=== PATIENT | male | born 1950 | race Caucasian/White ===

== ENCOUNTER 2017-11-17 10:47 | Day surgery (SDC) | payer MEDICARE ==
[~2017-11-17 10:47] MED LIST: Onabotulinimtoxina 100 UNITS* VIAL ONE
--- NOTE | 2017-11-18 13:04 | OP ---
DATE OF OPERATION: 11/17/17 - SDS DATE OF : 48 SURGEON: Agustin Hamilton MD PRE-OP DIAGNOSIS: Cricopharyngeal spasm. POST-OP DIAGNOSIS: OPERATIVE PROCEDURE: EMG-guided Botox injection under local anesthesia. The Botox was injected in the cricopharyngeus muscle in the local room. DESCRIPTION OF PROCEDURE: The patient's head was extended. His anterior neck was prepped with some alcohol. The cricoid cartilage and injection site just lateral to that and superior were demarcated and the injection site was injected with 1% lidocaine with epinephrine. 20 units of Botox was filled into the EMG needle and inserted through the skin inferomedially into the area of the cricopharyngeus. I had him swallow for the proper EMG muscle action potentials and then injected the 20 units of Botox. The patient tolerated this procedure well, no complications, and transferred back to [facility] in stable condition. [id number]/[facility] #: [id number] MTDD
== END 2017-11-17 11:39 | disposition home or self-care (01) ==
LOC: OR 10:47
PROVIDERS: ATTEND Otolaryngology
DX: R13.14 Dysphagia, pharyngoesophageal phase (principal); J39.2 Other diseases of pharynx; K22.4 Dyskinesia of esophagus; G71.0 Muscular dystrophy; Z87.891 Personal history of nicotine dependence; I10 Essential (primary) hypertension; Z85.038 Personal history of other malignant neoplasm of large intestine
CPT/HCPCS: 64616; 95873; J0585

== ENCOUNTER 2018-08-22 11:49 | Day surgery (SDC) | payer MEDICARE ==
[~2018-08-22 11:49] MED LIST changes: +Acetaminophen TAB* 325 MG PO PRN; +Buffered Lidocaine 1% SYRIN* 1 ML/SYRINGE INTRADERM ONE; -Onabotulinimtoxina 100 UNITS* VIAL ONE
[2018-08-22] MEDS ORDERED: Midazolam* 1 MG/ML 2 ML VIAL (2 MG) ONE (13:38)
[2018-08-22] MEDS ORDERED: Cyclopentolate 1% OPTH.SOL* 2 ML BTL ONE (14:26)
[2018-08-22] MEDS ORDERED: Povidone Iodine 5% OPTH* 30 ML BTL ONE (14:26)
[2018-08-22] MEDS ORDERED: Proparacaine 0.5% OPHTH.SOL* 15 ML BTL ONE (14:26)
[2018-08-22] MEDS ORDERED: Lidocaine 2% EPI 1:200000 MPF*10-20 ML VIAL ONE (14:26)
[2018-08-22] MEDS ORDERED: Lidocaine 1%* 5 ML VIAL ONE (14:26)
[2018-08-22] MEDS ORDERED: Ketorolac 0.5% OPHTH (NF) 0.5 % 5 ML BTL ONE (14:26)
[2018-08-22] MEDS ORDERED: acetaZOLAMIDE TAB* 250 MG ONE (14:26)
[2018-08-22] MEDS ORDERED: Neomycin/Polymy/Dex OPTH.SUSP* MAXITROL 0.1% 5 ML ONE (14:26)
[2018-08-22 14:50] VITALS: BP 133/76
--- NOTE | 2018-08-22 15:46 | OP ---
DATE OF OPERATION: 08/22/2018. DATE OF : 1950. SURGEON: Dante Greenwood M.D. PREOPERATIVE DIAGNOSIS: Cataract right eye. POSTOPERATIVE DIAGNOSIS: Cataract right eye. OPERATIVE PROCEDURE: Extracapsular cataract extraction with intraocular lens implant right eye. PROCEDURE: The patient was brought to the operating room after being given 1/2% Alcaine with epineph rine drops in the preoperative area. The eye was prepped and draped in the usual sterile fashion. S terile drape and eyelid speculum were placed. Again, topical 1/2% Alcaine with epinephrine was given . A paracentesis incision was made at the 9 o'clock position with the No.75 blade. Clear cornea inc ision 2.2 x 2.2-mm was created at the 12 o'clock position starting at the anterior limbus using the 2 .2-mm keratome. The anterior chamber was irrigated with 0.4 mL of 1% non-preservative intracameral l idocaine and filled with DisCoVisc. A capsulorrhexis was completed using the cystotome and the Utrat a forceps. Hydrodissection was performed with balanced salt solution. The lens nucleus was removed w ith the Phacoemulsification handpiece without incident. Cortex was removed with the irrigation-aspir ation handpiece. The capsular bag was re-inflated using DisCoVisc and an SN60WF 21.5 implant was ins erted with the shooter. The irrigation-aspiration handpiece was used to remove all residual DisCoVis c. The eye was refilled with balanced salt solution and the wound checked and found to be watertight . Topical Maxitrol drops were given. [id number]/[facility] #: [id number]
== END 2018-08-22 14:30 | disposition home or self-care (01) ==
LOC: OREAST 11:49
PROVIDERS: ATTEND Specialist
DX: H25.811 Combined forms of age-related cataract, right eye (principal); H49.43 Progressive external ophthalmoplegia, bilateral; Z88.0 Allergy status to penicillin; G71.00 Muscular dystrophy, unspecified; I10 Essential (primary) hypertension; E78.00 Pure hypercholesterolemia, unspecified; Z85.038 Personal history of other malignant neoplasm of large intestine; H04.553 Acquired stenosis of bilateral nasolacrimal duct
CPT/HCPCS: A9270-GY; J2250; V2632

== ENCOUNTER 2018-08-29 08:46 | Day surgery (SDC) | payer MEDICARE ==
[2018-08-29] MEDS ORDERED: Midazolam* 1 MG/ML 2 ML VIAL (2 MG) ONE (10:29)
[2018-08-29 11:16] VITALS: BP 116/77
--- NOTE | 2018-08-29 11:58 | OP ---
OPERATIVE NOTE: DATE OF OPERATION: 08/29/18 DATE OF : [birth year] SURGEON: Dante Greenwood M.D. PREOPERATIVE DIAGNOSIS: Cataract, left eye. POSTOPERATIVE DIAGNOSIS: Cataract, left eye. OPERATIVE PROCEDURE: Extracapsular cataract extraction with intraocular lens implant left eye. PROCEDURE: The patient was brought to the operating room after being given 1/2% Alcaine with epineph rine drops in the preoperative area. The eye was prepped and draped in the usual sterile fashion. S terile drape and eyelid speculum were placed. Again, topical 1/2% Alcaine with epinephrine was given . A paracentesis incision was made at the 3 o'clock position with the No.75 blade. Clear cornea inc ision 2.2 x 2.2-mm was created at the 6 o'clock position starting at the anterior limbus using the 2. 2-mm keratome. The anterior chamber was irrigated with 0.4 mL of 1% non-preservative intracameral li docaine and filled with DisCoVisc. A capsulorrhexis was completed using the cystotome and the Utrata forceps. Hydrodissection was performed with balanced salt solution. The lens nucleus was removed wi th the Phacoemulsification handpiece without incident. Cortex was removed with the irrigation-aspira tion handpiece. The capsular bag was re-inflated using DisCoVisc and an SN60WF 19.5 implant was inse rted with the shooter. The irrigation-aspiration handpiece was used to remove all residual DisCoVisc . The eye was refilled with balanced salt solution and the wound checked and found to be watertight. Topical Maxitrol drops were given. [id number]/[facility] #: [id number]
[2018-08-29] MEDS ORDERED: Ketorolac 0.5% OPHTH (NF) 0.5 % 5 ML BTL ONE (12:12)
[2018-08-29] MEDS ORDERED: Lidocaine 1%* 5 ML VIAL ONE (12:12)
[2018-08-29] MEDS ORDERED: Proparacaine 0.5% OPHTH.SOL* 15 ML BTL ONE (12:12)
[2018-08-29] MEDS ORDERED: Phenylephrine 2.5% OPTH.SOL* 2 ML BTL ONE (12:12)
[2018-08-29] MEDS ORDERED: acetaZOLAMIDE TAB* 250 MG ONE (12:12)
[2018-08-29] MEDS ORDERED: Povidone Iodine 5% OPTH* 30 ML BTL ONE (12:12)
[2018-08-29] MEDS ORDERED: Lidocaine 2% EPI 1:200000 MPF*10-20 ML VIAL ONE (12:12)
[2018-08-29] MEDS ORDERED: Cyclopentolate 1% OPTH.SOL* 2 ML BTL ONE (12:12)
[2018-08-29] MEDS ORDERED: Neomycin/Polymy/Dex OPTH.SUSP* MAXITROL 0.1% 5 ML ONE (12:12)
== END 2018-08-29 11:24 | disposition home or self-care (01) ==
LOC: OREAST 08:46
PROVIDERS: ATTEND Specialist
DX: H25.812 Combined forms of age-related cataract, left eye (principal); H49.43 Progressive external ophthalmoplegia, bilateral; I10 Essential (primary) hypertension; E78.5 Hyperlipidemia, unspecified; Z85.038 Personal history of other malignant neoplasm of large intestine; G71.09 Other specified muscular dystrophies
CPT/HCPCS: A9270-GY; J2250; V2632

== ENCOUNTER 2021-05-30 02:52 | Observation (INO) ==
[2021-05-30 03:17] LABS: ABS Basophils 0.1 10^3/ul (0-0.2); ABS Eosinophils 0.5 10^3/ul (0-0.6); ABS Lymphocytes 2.8 10^3/ul (1.0-4.8); ABS Monocytes 0.8 10^3/ul (0-0.8); ABS Neutrophils 3.6 10^3/ul (1.5-7.7); Eosinophil % 6.2 %; Hematocrit 44 % (42-52); Hemoglobin 15.8 g/dL (14.0-18.0); Lymphocyte % 36.2 %; Mean Corpuscular HGB Conc 36 g/dL (31-36); Mean Corpuscular Hemoglobin 33 pg (27-31); Mean Corpuscular Volume 90 fL (80-94); Mean Platelet Volume 7.9 fL (7.4-10.4); Nucleated Red Blood Cells % 0.2; Platelet Count 225 10^3/uL (150-450); Red Blood Count 4.84 10^6 /uL (4.18-5.48); Red Cell Distribution Width 13 % (10-15); White Blood Count 7.9 10^3/uL (3.5-10.8)
[2021-05-30 03:27] LABS: INR 0.93 (0.86-1.15)
[2021-05-30 03:36] LABS: ALT 31 U/L (7-52); Albumin 4.5 g/dL (3.2-5.2); Albumin/Globulin Ratio 1.6 (1-3); Alkaline Phosphatase 105 U/L (35-149); Blood Urea Nitrogen 9 mg/dL (6-24); CO2 Carbon Dioxide 27 mmol/L (22-32); Calcium 9.5 mg/dL (8.6-10.3); Chloride 96 mmol/L (101-111); Globulin 2.8 g/dL (2-4); Glucose 96 mg/dL (70-100); Sodium 131 mmol/L (135-145); Total Protein 7.3 g/dL (6.4-8.9); eGFR CKD-EPI 96.1 (>60)
[2021-05-30] MEDS ORDERED: Lactated Ringers 1000 ml BAG 1,000 ML IV ONE (03:38)
[2021-05-30 03:45] LABS: Anion Gap 8 mmol/L (2-11)
[2021-05-30] MEDS ORDERED: Diltiazem IV push/loading dose 5 MG/ML 5 ML vial (25 mg) IV SLOW PU ONE (04:20)
[2021-05-30] MEDS ORDERED: Diltiazem IV BAG D5W Premix 125 MG/125 ML BAG IV SCH (05:00)
[2021-05-30 05:07] LABS: TSH Ultra Thyroid Stim Horm 2.26 mcIU/mL (0.34-5.60)
[2021-05-30 05:12] LABS: Magnesium 1.3 mg/dL (1.9-2.7); Potassium Redraw 3.6 mmol/L (3.5-5.0)
[2021-05-30] MEDS ORDERED: Magnesium Sulfate IV 3 GM in NS 0.9% 100 ml BAG 100 ML IVPB ONE (05:18)
[2021-05-30] MEDS ORDERED: NS 0.9% 100 ml BAG 100 ML ONE (05:24)
[2021-05-30] MEDS ORDERED: Potassium Chlor 20 meq TAB.ER PO ONE (05:58)
[2021-05-30] MEDS ORDERED: DESLORATADINE 5 MG PO SCH (09:00)
[2021-05-30] MEDS ORDERED: Multivitamins/Minerals TAB PO SCH (09:00)
[2021-05-30 10:34] LABS: Anion Gap 4 mmol/L (2-11); Blood Urea Nitrogen 9 mg/dL (6-24); CO2 Carbon Dioxide 31 mmol/L (22-32); Chloride 100 mmol/L (101-111); Glucose 104 mg/dL (70-100); Magnesium 2.9 mg/dL (1.9-2.7); Potassium 4.3 mmol/L (3.5-5.0); Sodium 135 mmol/L (135-145); eGFR CKD-EPI 100.7 (>60)
[2021-05-30 13:42] LABS: Troponin I 0.03 ng/mL (<0.03)
[2021-05-30 14:31] VITALS: BP 130/69
[2021-05-30] MEDS ORDERED: CMCS:Simvastatin 10 mg TAB (NF) PO SCH (21:00)
[2021-05-31] MEDS ORDERED: Potassium Chlor 20 meq TAB.ER PO SCH (09:00)
== END 2021-05-30 13:43 | disposition home or self-care (01) ==
LOC: EDHOLD 02:52 → ED 02:52 → SUATTDRO 05:42 → MEDTELE 12:13
PROVIDERS: ADMIT Internal Medicine; ATTEND Internal Medicine